=== PATIENT | female | born 1985 | race African-American/Black ===

== ENCOUNTER 2016-07-29 00:10 | Emergency (ER) | payer MEDICAID ==
[2015-12-27 07:43] VITALS: BMI 49.5
[~2016-07-29 00:10] MED LIST: CYCLOBENZAPRINE10 MG PO; HYDROCODONE-APA1 TAB PO
== END 2016-07-29 01:53 | disposition home or self-care (01) ==
LOC: D.ER 00:10
DX: R51 Headache (principal)

== ENCOUNTER → 2016-09-02 10:42 | Outpatient (CLI) | payer MEDICAID ==
[2015-12-27 07:43] VITALS: BMI 49.5
== END | disposition home or self-care (01) ==
LOC: D.MRI 10:00
DX: S83.511D Sprain of anterior cruciate ligament of right knee, subsequent encounter (principal); X58.XXXA Exposure to other specified factors, initial encounter; Y93.89 Activity, other specified; Y92.89 Other specified places as the place of occurrence of the external cause

== ENCOUNTER 2016-09-22 00:13 | Emergency (ER) | payer SELFPAY ==
[2015-12-27 07:43] VITALS: BMI 49.5
== END 2016-09-22 01:12 | disposition home or self-care (01) ==
LOC: D.ER 00:13
DX: S89.91XA Unspecified injury of right lower leg, initial encounter (principal); W18.2XXA Fall in (into) shower or empty bathtub, initial encounter; Y93.89 Activity, other specified; Y92.012 Bathroom of single-family (private) house as the place of occurrence of the external cause

== ENCOUNTER 2016-10-07 01:18 | Emergency (ER) | payer SELFPAY ==
[2015-12-27 07:43] VITALS: BMI 49.5
== END 2016-10-07 02:24 | disposition home or self-care (01) ==
LOC: D.ER 01:18
DX: M54.2 Cervicalgia (principal); M62.838 Other muscle spasm

== ENCOUNTER 2016-11-16 23:22 | Emergency (ER) | payer MEDICAID ==
[2015-12-27 07:43] VITALS: BMI 49.5
== END 2016-11-17 00:32 | disposition home or self-care (01) ==
LOC: D.ER 23:22
DX: S43.401A Unspecified sprain of right shoulder joint, initial encounter (principal); W19.XXXA Unspecified fall, initial encounter; Y93.89 Activity, other specified; Y92.89 Other specified places as the place of occurrence of the external cause; S80.11XA Contusion of right lower leg, initial encounter

== ENCOUNTER 2016-12-28 08:12 | Emergency (ER) | payer MEDICAID ==
[2015-12-27 07:43] VITALS: BMI 49.5
== END 2016-12-28 09:27 | disposition home or self-care (01) ==
LOC: D.ER 08:12
DX: M25.561 Pain in right knee (principal)

== ENCOUNTER 2017-01-30 00:09 | Emergency (ER) | payer MEDICAID ==
[2015-12-27 07:43] VITALS: BMI 49.5
== END 2017-01-30 00:46 | disposition home or self-care (01) ==
LOC: D.ER 00:09
DX: L08.82 Omphalitis not of newborn (principal)

== ENCOUNTER 2017-02-10 22:08 | Emergency (ER) | payer MEDICAID ==
[2015-12-27 07:43] VITALS: BMI 49.5
== END 2017-02-11 00:15 | disposition home or self-care (01) ==
LOC: D.ER 22:08
DX: G43.909 Migraine, unspecified, not intractable, without status migrainosus (principal)

== ENCOUNTER 2017-04-18 00:12 | Emergency (ER) | payer MEDICAID ==
[2015-12-27 07:43] VITALS: BMI 49.5
== END 2017-04-18 00:13 | disposition home or self-care (01) ==
LOC: D.ER 00:12
DX: R11.0 Nausea (principal); Z76.5 Malingerer [conscious simulation]

== ENCOUNTER 2017-06-13 02:58 | Emergency (ER) | payer MEDICAID ==
[2015-12-27 07:43] VITALS: BMI 49.5
== END 2017-06-13 03:47 | disposition home or self-care (01) ==
LOC: D.ER 02:58
DX: S16.1XXA Strain of muscle, fascia and tendon at neck level, initial encounter (principal); W18.2XXA Fall in (into) shower or empty bathtub, initial encounter; Y93.E1 Activity, personal bathing and showering; Y92.012 Bathroom of single-family (private) house as the place of occurrence of the external cause; M25.511 Pain in right shoulder; M25.531 Pain in right wrist; M25.561 Pain in right knee

== ENCOUNTER 2017-07-06 18:43 | Emergency (ER) | payer MEDICAID ==
[2015-12-27 07:43] VITALS: BMI 49.5
[2017-07-06 19:05] LABS: BASOPHILS 0.2 % (0-2); EOSINOPHILS 1.4 % (0-7); HEMOGLOBIN 12.4 g/dL (12-16); IMMATURE GRANULOCYTES 0.4 % (0-5); LYMPHOCYTES 46.8 % (15-50); MCH 26.7 pg (26.0-34.0); MCHC 32.6 g/dL (31.0-37.0); MCV 81.7 fL (80.0-100.0); MEAN PLATELET VOLUME 9.7 fL (7.4-10.4); NEUTROPHILS 43.2 % (40-80); PLATELET COUNT 360 10x3/uL (130-400); RBC 4.65 10x6/uL (4.00-5.40); RDW 12.8 % (11.5-14.5); WBC 8.5 10x3/uL (4.8-10.8)
[2017-07-06 19:32] LABS: ALBUMIN 3.6 g/dL (3.4-5.0); ANION GAP 17.4 mmol/L (8-16); BILIRUBIN - TOTAL 0.2 mg/dL (0.2-1.3); CALCIUM 8.7 mg/dL (8.5-10.1); CREATININE - SERUM 1.1 mg/dL (0.6-1.3); POTASSIUM - SERUM 3.4 mmol/L (3.5-5.1); PROTEIN - SERUM 7.7 g/dL (6.4-8.2)
[2017-07-06 20:59] LABS: T4 THYROXIN - FREE 0.92 ng/dL (0.76-1.46); THYROID STIMULATING HORMONE 1.8 uIU/mL (0.36-3.74)
[2017-07-06 21:14] LABS: HCG SERUM NEGATIVE (NEGATIVE)
[2017-07-06 22:21] LABS: APPEARANCE CLEAR (CLEAR); BILIRUBIN NEGATIVE (NEGATIVE); COLOR YELLOW (YELLOW); GLUCOSE NEGATIVE (NEGATIVE); KETONE NEGATIVE (NEGATIVE); NITRITE NEGATIVE (NEGATIVE); PROTEIN NEGATIVE (NEGATIVE); SPECIFIC GRAVITY 1.015 (1.005-1.020); UROBILINOGEN NORMAL (NORMAL)
[2017-07-06 22:28] LABS: UDS - AMPHET NEGATIVE QUAL (NEGATIVE); UDS - BARB NEGATIVE QUAL (NEGATIVE); UDS - BENZO NEGATIVE QUAL (NEGATIVE); UDS - COCAINE NEGATIVE QUAL (NEGATIVE); UDS - OPIATE NEGATIVE QUAL (NEGATIVE); UDS - PCP NEGATIVE QUAL (NEGATIVE); UDS - THC NEGATIVE QUAL (NEGATIVE)
== END 2017-07-06 23:30 | disposition home or self-care (01) ==
LOC: D.ER 18:43
PROVIDERS: Emergency Medicine; Physician Assistant
DX: R55 Syncope and collapse (principal); R00.0 Tachycardia, unspecified; S02.5XXA Fracture of tooth (traumatic), initial encounter for closed fracture; X58.XXXA Exposure to other specified factors, initial encounter; Y93.89 Activity, other specified; Y92.89 Other specified places as the place of occurrence of the external cause; E87.6 Hypokalemia

== ENCOUNTER 2017-07-08 20:01 | Emergency (ER) | payer MEDICAID ==
[2015-12-27 07:43] VITALS: BMI 49.5
[2017-07-08 20:37] LABS: BASOPHILS 0.2 % (0-2); EOSINOPHILS 1.4 % (0-7); HEMATOCRIT 38.2 % (36.0-48.0); HEMOGLOBIN 12.4 g/dL (12-16); IMMATURE GRANULOCYTES 0.5 % (0-5); LYMPHOCYTES 24.8 % (15-50); MCH 26.7 pg (26.0-34.0); MCHC 32.5 g/dL (31.0-37.0); MCV 82.2 fL (80.0-100.0); MONOCYTES 7.2 % (2-11); NEUTROPHILS 65.9 % (40-80); PLATELET COUNT 340 10x3/uL (130-400); RBC 4.65 10x6/uL (4.00-5.40); WBC 8.1 10x3/uL (4.8-10.8)
[2017-07-08 20:48] LABS: ALBUMIN 3.4 g/dL (3.4-5.0); ALKALINE PHOSPHATASE 88 U/L (46-116); ALT (SGPT) 17 U/L (10-68); BILIRUBIN - TOTAL 0.38 mg/dL (0.2-1.3); CALC OSMOLALITY 271 mosm/kg (275-300); CALCIUM 8.8 mg/dL (8.5-10.1); CARBON DIOXIDE 28.1 mmol/L (21.0-32.0); CHLORIDE - SERUM 102 mmol/L (98-107); CREATININE - SERUM 1.1 mg/dL (0.6-1.3); GLUCOSE 97 mg/dL (74-106); POTASSIUM - SERUM 3.5 mmol/L (3.5-5.1); PROTEIN - SERUM 7.5 g/dL (6.4-8.2); SODIUM 137 mmol/L (136-145); UREA NITROGEN 7 mg/dL (7-18); eGFR NON AFRICAN AMERICAN 62 mL/min (90-120)
[2017-07-08 20:54] LABS: HCG SERUM NEGATIVE (NEGATIVE)
[2017-07-08 21:02] LABS: CKMB 0.6 U/L (0.0-3.6); CREATINE KINASE 110 UL (21-215)
[2017-07-08 21:04] LABS: TROPONIN-I < 0.017 ng/mL (0.000-0.060)
[2017-07-08 22:14] LABS: APPEARANCE HAZY (CLEAR); COLOR YELLOW (YELLOW)
[2017-07-08 22:15] LABS: BILIRUBIN NEGATIVE (NEGATIVE); GLUCOSE NEGATIVE (NEGATIVE); KETONE NEGATIVE (NEGATIVE); NITRITE NEGATIVE (NEGATIVE); PROTEIN TRACE mg/dL (NEGATIVE); SPECIFIC GRAVITY 1.015 (1.005-1.020); UROBILINOGEN NORMAL (NORMAL)
[2017-07-08 22:17] LABS: BACTERIA FEW /hpf (NONE SEEN); EPITHELIAL CELLS 0-5 /hpf (0-5); WHITE CELLS - URINE 0-5 /hpf (0-5)
== END 2017-07-08 22:43 | disposition home or self-care (01) ==
LOC: D.ER 20:01
PROVIDERS: Family Medicine
DX: R07.89 Other chest pain (principal); R55 Syncope and collapse; A59.01 Trichomonal vulvovaginitis; F17.200 Nicotine dependence, unspecified, uncomplicated

== ENCOUNTER 2017-08-30 00:50 | Emergency (ER) | payer MEDICAID ==
[2015-12-27 07:43] VITALS: BMI 49.5
== END 2017-08-30 02:06 | disposition home or self-care (01) ==
LOC: D.ER 00:50
DX: J01.90 Acute sinusitis, unspecified (principal)

== ENCOUNTER 2017-12-03 05:47 | Day surgery (SDC) | payer MEDICAID ==
[~2017-12-03] VITALS: Ht 162.6 cm; Wt 0.7 kg
--- NOTE | ~2017-12-03 | OP ---
PATIENT NAME: CHASTITY VÁZQUEZ MEDICAL RECORD: [id number] :87 LOCATION:[facility] ADMISSION DATE: SURGEON: SHAHAB GAR DO DATE OF OPERATION: 12/03/2017 PROCEDURE PERFORMED: Right knee arthroscopy with partial medial meniscectomy and lateral release. PREOPERATIVE DIAGNOSIS: Right knee patellofemoral syndrome. POSTOPERATIVE DIAGNOSES: Right knee patellofemoral syndrome plus medial meniscal tear. INDICATIONS: Ms. Vázquez is a 32-year-old female, who had her ACL done 7 years ago, started having some knee pain and was complaining of going up and down stairs and having pain on the patella. This was going on for quite some time. She tried injection and also some therapy, which did not help and she wanted something done surgically. I informed her that we could do a lateral release and look at the rest of the knee, check her ACL and make sure it is still good and intact and it should provide her with some relief or give more motion to her patella as it was quite tight with lateral and medial motion. She was okay with that and consented to the procedure, aware of the risks and benefits. SURGEON: SHAHAB GAR DO PROCEDURE IN DETAIL: The patient was given a femoral block by anesthesia in the preoperative area and taken to the operative suite, laid in supine position, given general anesthetic. The right lower extremity was prepped and draped in sterile fashion with tourniquet under the drapes. Timeout was performed. Everyone was in agreement of correct side, site and patient. After that, the lateral portal was established with an 11-blade scalpel and trocar was entered into the knee. Knee was inspected underneath the patella. No chondromalacia was seen except for some slight fraying of the cartilage. The lateral gutter was intact. No loose bodies were seen there, same as the medial gutter. Then, the knee was flexed down. The medial compartment was entered. The medial portal was then established. The meniscus and the medial compartment was probed and the tear was seen in the posterior third of the medial meniscus. This was then trimmed out. The cartilage was inspected on the medial side and seemed to be intact. Then the probe was used to probe the ACL, seemed to be quite taut and in good position, it was parked in the posterior lateral compartment of the knee and the knee was [id number], opening up the lateral compartment. The lateral meniscus was inspected and it was seen to be intact and probed and well attached. The knee was then brought back into an extension and slightly flexed and changed portals, viewing portal to the medial portal, viewing the lateral retinaculum. This was quite taut and was released with a burner. Did encounter a bleeder, which was coagulated and the tourniquet was inflated to 350 mmHg in order to get the bleeding stopped and was deflated after 5 minutes. The lateral release was completed and the patella was seen to be much more mobile and intact, aligned better in the trochlear groove. This was annotated with pictures. After this was done, the tourniquet was let down after 5 minutes and the water was turned off, suction was turned on and excess fluid was taken out of the knee. The portal sites were then closed with 4-0 Monocryl in inverted interrupted fashion. Steri-Strips, Adaptic, 4 x 4's, ABD, Webril and Bautista wrap were then placed on the knee, CHEY hose and stockings were placed up to the knee. The patient was awakened and taken to recovery in stable condition. OPERATIVE REPORT [id number] CHASTITY VÁZQUEZ BLOOD LOSS: Minimal. COMPLICATIONS: None. TRANSINT:[id number] Voice Confirmation ID: [id number] DOCUMENT ID: [id number] SHAHAB GAR DO at 1350 CC: [id number] DICTATION DATE: 12/03/17 0840 BAND TEACHER: 12/03/17 0945 [place] [id number] [place] [id number]
[2017-12-03] MEDS ORDERED: ULTRAM50 MG PO (06:34)
[2017-12-03 06:49] VITALS: BP 153/96; Ht 162.6 cm; Wt 0.7 kg
[2017-12-03 06:51] LABS: HEMATOCRIT 37.4 % (36.0-48.0); HEMOGLOBIN 12.5 g/dL (12-16); MCH 27.1 pg (26.0-34.0); MCHC 33.4 g/dL (31.0-37.0); MCV 81.1 fL (80.0-100.0); MEAN PLATELET VOLUME 10.2 fL (7.4-10.4); RBC 4.61 10x6/uL (4.00-5.40); RDW 12.8 % (11.5-14.5)
[2017-12-03 07:20] LABS: HCG URINE NEGATIVE (NEGATIVE)
[2017-12-03] MEDS ORDERED: PERCOCET 10/3251 TA1 PO (08:33)
[2017-12-03] MEDS ORDERED: TORADOL10 MG PO (08:35)
== END 2017-12-03 10:45 | disposition home or self-care (01) ==
LOC: D.OPS 05:47 → D.PAN 07:45 → D.OPS 08:15
PROVIDERS: Anesthesiology; Orthopaedic Surgery
DX: M22.2X1 Patellofemoral disorders, right knee (principal); S83.241A Other tear of medial meniscus, current injury, right knee, initial encounter; Z01.812 Encounter for preprocedural laboratory examination

== ENCOUNTER 2018-01-08 21:57 | Emergency (ER) | payer MEDICAID ==
[~2018-01-08] VITALS: Ht 157.5 cm; Wt 113.6 kg
[~2018-01-08 21:57] MED LIST changes: +PERCOCET 10/3251 TA1 PO; +TORADOL10 MG PO; +ULTRAM50 MG PO
[2018-01-08 22:04] VITALS: Ht 157.5 cm; Wt 113.6 kg
[2018-01-09] MEDS ORDERED: AMOXICILLIN500 M1 PO (00:20)
[2018-01-09] MEDS ORDERED: TYLENOL W/CODEI1 TAB PO (00:20)
[2018-01-09 00:37] VITALS: BP 138/74
== END 2018-01-09 00:38 | disposition home or self-care (01) ==
LOC: D.ER 21:57
DX: K04.7 Periapical abscess without sinus (principal); K08.89 Other specified disorders of teeth and supporting structures

== ENCOUNTER 2018-03-13 23:38 | Emergency (ER) | payer MEDICAID ==
[~2018-03-13] VITALS: Ht 157.5 cm; Wt 100.0 kg
[~2018-03-13 23:38] MED LIST changes: +AMOXICILLIN500 M1 PO; +TYLENOL W/CODEI1 TAB PO
[2018-03-13 23:48] VITALS: Ht 157.5 cm; Wt 100.0 kg
[2018-03-14] MEDS ORDERED: TORADOL10 MG PO (01:01)
[2018-03-14 01:56] VITALS: BP 136/79
== END 2018-03-14 01:56 | disposition home or self-care (01) ==
LOC: D.ER 23:38
DX: M25.551 Pain in right hip (principal)

== ENCOUNTER → 2018-04-14 07:59 | Outpatient (CLI) | payer MEDICAID ==
[2018-03-13 23:48] VITALS: BMI 40.3
== END | disposition home or self-care (01) ==
LOC: D.MRI 07:59
DX: M54.16 Radiculopathy, lumbar region (principal)

== ENCOUNTER 2018-06-12 20:29 | Observation (INO) | payer MEDICAID ==
[~2018-06-12] VITALS: Ht 157.5 cm; Wt 104.5 kg
[2018-06-12] MEDS ORDERED: ULTRAM50 MG (20:34)
[2018-06-12 20:54] LABS: BASOPHILS 0.3 % (0-2); EOSINOPHILS 0.8 % (0-7); HEMATOCRIT 38.1 % (36.0-48.0); HEMOGLOBIN 12.5 g/dL (12-16); IMMATURE GRANULOCYTES 0.3 % (0-5); LYMPHOCYTES 39.3 % (15-50); MCH 26.6 pg (26.0-34.0); MCHC 32.8 g/dL (31.0-37.0); MCV 81.1 fL (80.0-100.0); MEAN PLATELET VOLUME 9.9 fL (7.4-10.4); MONOCYTES 5.5 % (2-11); NEUTROPHILS 53.8 % (40-80); PLATELET COUNT 388 10x3/uL (130-400); RDW 12.7 % (11.5-14.5); WBC 8.8 10x3/uL (4.8-10.8)
--- NOTE | 2018-06-12 21:00 | NUR ---
PT REPORTS CHEST PAIN. ADVISED EDP. EKG OBTAINED.
[2018-06-12 21:03] LABS: ALBUMIN 3.3 g/dL (3.4-5.0); BILIRUBIN - TOTAL 0.34 mg/dL (0.2-1.3); CALCIUM 8.2 mg/dL (8.5-10.1); CARBON DIOXIDE 24.1 mmol/L (21.0-32.0); CREATININE - SERUM 1.1 mg/dL (0.6-1.3); POTASSIUM - SERUM 3.1 mmol/L (3.5-5.1); PROTEIN - SERUM 7.6 g/dL (6.4-8.2)
--- NOTE | 2018-06-12 21:50 | NUR ---
MINA GIL AND MINA MCKEON IN PATIENT ROOM AT THIS TIME.
[2018-06-12 21:59] VITALS: BP 156/96
[2018-06-12 22:11] LABS: C-REACTIVE PROTEIN 1.9 mg/dL (0.0-0.9); THYROID STIMULATING HORMONE 1.41 uIU/mL (0.36-3.74)
[2018-06-12 22:12] LABS: APTT 26.8 SECONDS (22.8-39.4)
[2018-06-12 22:13] LABS: D-DIMER-QUANTITATIVE 0.91 ug/mLFEU (0.20-0.54); INR 1.04 (0.85-1.17); PROTIME 13.1 SECONDS (11.6-15.0)
[2018-06-12 22:15] LABS: TROPONIN-I < 0.017 ng/mL (0.000-0.060)
--- NOTE | 2018-06-12 22:24 | NUR ---
PT TRANSPORTED TO MRI VIA WHEELCHAIR BY RAD STAFF.
[2018-06-12 22:37] LABS: APPEARANCE CLOUDY (CLEAR); BILIRUBIN NEGATIVE (NEGATIVE); COLOR YELLOW (YELLOW); GLUCOSE NEGATIVE (NEGATIVE); KETONE NEGATIVE (NEGATIVE); NITRITE NEGATIVE (NEGATIVE); PROTEIN TRACE mg/dL (NEGATIVE); SPECIFIC GRAVITY 1.025 (1.005-1.020); UROBILINOGEN NORMAL (NORMAL)
[2018-06-12 22:39] LABS: BACTERIA MODERATE /hpf (NONE SEEN); HCG URINE NEGATIVE (NEGATIVE); RED CELLS - URINE 0-5 /hpf (0-5); WHITE CELLS - URINE 0-5 /hpf (0-5)
[2018-06-12 23:25] LABS: UDS - AMPHET NEGATIVE QUAL (NEGATIVE); UDS - BARB NEGATIVE QUAL (NEGATIVE); UDS - BENZO NEGATIVE QUAL (NEGATIVE); UDS - COCAINE NEGATIVE QUAL (NEGATIVE); UDS - OPIATE NEGATIVE QUAL (NEGATIVE); UDS - PCP NEGATIVE QUAL (NEGATIVE); UDS - THC NEGATIVE QUAL (NEGATIVE)
--- NOTE | 2018-06-12 23:26 | NUR ---
PT RETURNED FROM MRI AT THIS TIME.
[2018-06-12 23:36] VITALS: BP 148/83
--- NOTE | 2018-06-12 23:41 | NUR ---
PT LAYING IN BED VISITING WITH FAMILY MEMBERS AT THIS TIME. RESPIRATIONS ARE EVEN AND UNLABORED. VSS. NO DISTRESS NOTED. COLOR WNL FOR RACE. WILL CONTINUE TO MONITOR.
--- NOTE | 2018-06-13 01:34 | NUR ---
REC'D PATIENT TO FLOOR VIA WHEELCHAIR. NO S/S OF DISTRESS. OBTAINED CONSENT TO ASK QUESTIONS IN FRONT OF GUEST. COMPLETED HISTORY AND ASSESSMENT. PATIENT DENIES OTHER NEEDS AT THIS TIME. BED RAILS PADDED FOR SEIZURE PRECAUTIONS. BED IN LOWEST POSITION AND CALL LIGHT WITHIN REACH. ENCOURAGED THE PATIENT TO CALL IF SHE HAS NEEDS. WILL CONTINUE TO MONITOR.
[2018-06-13 01:42] VITALS: BP 146/87; Ht 157.5 cm; Wt 104.5 kg
[2018-06-13 08:38] VITALS: BP 122/68
[2018-06-13 12:30] VITALS: BP 125/60
[2018-06-13 17:03] VITALS: BP 104/48
[2018-06-13 17:18] LABS: BASOPHILS 0.2 % (0-2); EOSINOPHILS 0.8 % (0-7); HEMOGLOBIN 11.6 g/dL (12-16); IMMATURE GRANULOCYTES 0.2 % (0-5); LYMPHOCYTES 28.8 % (15-50); MCH 26.2 pg (26.0-34.0); MCHC 32.2 g/dL (31.0-37.0); MCV 81.4 fL (80.0-100.0); MEAN PLATELET VOLUME 9.6 fL (7.4-10.4); MONOCYTES 4.7 % (2-11); NEUTROPHILS 65.3 % (40-80); PLATELET COUNT 326 10x3/uL (130-400); RBC 4.42 10x6/uL (4.00-5.40)
[2018-06-13 17:23] LABS: WBC 6.4 10x3/uL (4.8-10.8)
[2018-06-13 17:32] LABS: ALKALINE PHOSPHATASE 85 U/L (46-116); ALT (SGPT) 20 U/L (10-68); BILIRUBIN - TOTAL 0.63 mg/dL (0.2-1.3); CALC OSMOLALITY 276 mosm/kg (275-300); CALCIUM 8.1 mg/dL (8.5-10.1); CARBON DIOXIDE 26.6 mmol/L (21.0-32.0); CHLORIDE - SERUM 103 mmol/L (98-107); CREATININE - SERUM 0.9 mg/dL (0.6-1.3); GLUCOSE 105 mg/dL (74-106); POTASSIUM - SERUM 3.3 mmol/L (3.5-5.1); SODIUM 139 mmol/L (136-145); UREA NITROGEN 11 mg/dL (7-18); eGFR NON AFRICAN AMERICAN 78 mL/min (90-120)
[2018-06-13 17:44] LABS: CKMB 0.5 U/L (0.0-3.6); CREATINE KINASE 166 UL (21-215); TROPONIN-I < 0.017 ng/mL (0.000-0.060)
--- NOTE | 2018-06-13 20:45 | NUR ---
SITTING UP IN BED WATCHING TV AND TALKING TO SIG OTHER. ALERT AND ORIENTED X4. NO SEIZURE ACTIVITY NOTED. SEIZURE PRECAUTIONS IN USE. RESP EVEN AND NONLABORED. BBS CTA. ABD OBESE. TELEMETRY SHOWS SR WITH RATE OF 93. NO EDEMA NOTED. AMBULATORY. NO DISTRESS. NS @ 50 ML/HR INFUSING IN LT AC WITHOUT DIFF. SR ELEVATED X2. CL IN REACH.
[2018-06-13 22:01] VITALS: BP 139/86
[2018-06-13 23:51] LABS: CKMB 0.1 U/L (0.0-3.6); CREATINE KINASE 168 UL (21-215)
[2018-06-13 23:52] LABS: TROPONIN-I < 0.017 ng/mL (0.000-0.060)
[2018-06-14] VITALS: BP 125/80
--- NOTE | 2018-06-14 03:26 | NUR ---
RESTING QUIETLY WITH EYES CLOSED. RESP EVEN AND NONLABORED. NO DISTRESS. NO SEIZURE ACTIVITY SO FAR THIS SHIFT. SIG OTHER IN BED WITH PT. CL IN REACH.
[2018-06-14 05:59] VITALS: BP 132/73
--- NOTE | 2018-06-14 07:00 | NUR ---
RECEIVED REPORT. ASSUMED CARE OF PATIENT. NO DISTRESS. SITTING IN BED. IV FLUIDS INFUSING ORDERED.
[2018-06-14 07:07] LABS: BASOPHILS 0.2 % (0-2); EOSINOPHILS 1.1 % (0-7); HEMATOCRIT 35.5 % (36.0-48.0); HEMOGLOBIN 11.4 g/dL (12-16); IMMATURE GRANULOCYTES 0.2 % (0-5); LYMPHOCYTES 28.8 % (15-50); MCH 26.2 pg (26.0-34.0); MCHC 32.1 g/dL (31.0-37.0); MCV 81.6 fL (80.0-100.0); MONOCYTES 4.8 % (2-11); NEUTROPHILS 64.9 % (40-80); PLATELET COUNT 333 10x3/uL (130-400); RBC 4.35 10x6/uL (4.00-5.40); RDW 12.9 % (11.5-14.5); WBC 5.6 10x3/uL (4.8-10.8)
[2018-06-14 07:34] LABS: ALBUMIN 2.8 g/dL (3.4-5.0); ALKALINE PHOSPHATASE 79 U/L (46-116); ALT (SGPT) 18 U/L (10-68); BILIRUBIN - TOTAL 0.39 mg/dL (0.2-1.3); CALC OSMOLALITY 275 mosm/kg (275-300); CALCIUM 7.8 mg/dL (8.5-10.1); CARBON DIOXIDE 26.1 mmol/L (21.0-32.0); CHLORIDE - SERUM 104 mmol/L (98-107); CKMB 0.1 U/L (0.0-3.6); CREATINE KINASE 134 UL (21-215); CREATININE - SERUM 0.7 mg/dL (0.6-1.3); GLUCOSE 90 mg/dL (74-106); POTASSIUM - SERUM 3.6 mmol/L (3.5-5.1); PROTEIN - SERUM 6.7 g/dL (6.4-8.2); SODIUM 138 mmol/L (136-145); TROPONIN-I < 0.017 ng/mL (0.000-0.060); UREA NITROGEN 12 mg/dL (7-18); eGFR NON AFRICAN AMERICAN > 90 mL/min (90-120)
--- NOTE | 2018-06-14 09:14 | NUR ---
RATIONALE FOR SCD'S EXPLAINED. REFUSED SCD'S
--- NOTE | 2018-06-14 09:15 | NUR ---
IV FLUSED. NO DISTRESS.
[2018-06-14 09:43] VITALS: BP 140/84
[2018-06-14 11:45] VITALS: BP 141/93
--- NOTE | 2018-06-14 15:15 | NUR ---
PATIENT AMBULATING IN HALLWAY. NO DISTRESS. RESP EVEN AND UNLABORED. NO JERKS, TICS, OR SEIZURE LIKE ACTIVITY NOTED.
--- NOTE | 2018-06-14 19:30 | NUR ---
PT ALERT AND ORIENTED. CONCERNED OF BLOOD IN IV LINE. IV FLUSHED CLAMPED AND NEW SWAB CAP PLACED. CALL LIGHT IN REACH. WILL CONTINUE TO OBSERVE.
[2018-06-14 19:54] VITALS: BP 159/763
--- NOTE | 2018-06-15 01:54 | NUR ---
PATIENT RESTING IN BED WITH EYES CLOSED AND NO S/S OF DISTRESS. BED IN LOWEST POSITION AND CALL LIGHT WITHIN REACH. WILL CONTINUE TO MONITOR.
[2018-06-15 05:12] VITALS: BP 151/96
[2018-06-15 06:57] LABS: BASOPHILS 0.1 % (0-2); EOSINOPHILS 1.2 % (0-7); HEMATOCRIT 34.7 % (36.0-48.0); HEMOGLOBIN 11.3 g/dL (12-16); IMMATURE GRANULOCYTES 0.3 % (0-5); LYMPHOCYTES 30.9 % (15-50); MCH 26.6 pg (26.0-34.0); MCHC 32.6 g/dL (31.0-37.0); MCV 81.6 fL (80.0-100.0); MEAN PLATELET VOLUME 10.4 fL (7.4-10.4); MONOCYTES 6.1 % (2-11); NEUTROPHILS 61.4 % (40-80); PLATELET COUNT 336 10x3/uL (130-400); RBC 4.25 10x6/uL (4.00-5.40); WBC 6.9 10x3/uL (4.8-10.8)
[2018-06-15 07:16] LABS: ALBUMIN 2.8 g/dL (3.4-5.0); ALKALINE PHOSPHATASE 85 U/L (46-116); ALT (SGPT) 17 U/L (10-68); CALC OSMOLALITY 283 mosm/kg (275-300); CARBON DIOXIDE 24.6 mmol/L (21.0-32.0); CHLORIDE - SERUM 107 mmol/L (98-107); CREATININE - SERUM 0.8 mg/dL (0.6-1.3); GLUCOSE 98 mg/dL (74-106); POTASSIUM - SERUM 3.6 mmol/L (3.5-5.1); PROTEIN - SERUM 6.5 g/dL (6.4-8.2); SODIUM 142 mmol/L (136-145); UREA NITROGEN 14 mg/dL (7-18); eGFR NON AFRICAN AMERICAN 89 mL/min (90-120)
[2018-06-15 08:27] VITALS: BP 154/93
--- NOTE | 2018-06-15 10:27 | NUR ---
PROVIDED VERBAL AND WRITTEN DISCHARGE TEACHING TO PT, WHO VERBALIZED UNDERSTANDING. D/C LT AC IV WITH CATHETER TIP INTACT.PT LEFT UNIT VIA AMBULATORY WITH ALL BELONGINGS ACCOMPANIED BY FAMILY, NAD NOTED.
== END 2018-06-15 11:00 | disposition home or self-care (01) ==
LOC: D.ER 20:29 → D.EDHOLD 06-13 00:55 → D.M3 06-13 00:55 → OBSVTIME 06-13 00:55 → D.M3 06-13 01:13
PROVIDERS: Family Medicine; ADMIT Internal Medicine Nephrology
DX: R56.9 Unspecified convulsions (principal); R00.0 Tachycardia, unspecified; R93.0 Abnormal findings on diagnostic imaging of skull and head, not elsewhere classified; K21.9 Gastro-esophageal reflux disease without esophagitis; N39.0 Urinary tract infection, site not specified; E87.6 Hypokalemia; R55 Syncope and collapse

== ENCOUNTER 2018-11-08 02:10 | Emergency (ER) | payer MEDICAID ==
[~2018-11-08] VITALS: Ht 157.5 cm; Wt 118.2 kg
[~2018-11-08 02:10] MED LIST changes: +ULTRAM50 MG
[2018-11-08 02:28] VITALS: BP 131/83; Ht 157.5 cm; Wt 118.2 kg
== END 2018-11-08 03:30 | disposition left against medical advice (07) ==
LOC: D.ER 02:10
DX: M54.5 Low back pain (principal); W18.2XXA Fall in (into) shower or empty bathtub, initial encounter; Y93.E1 Activity, personal bathing and showering; Y92.012 Bathroom of single-family (private) house as the place of occurrence of the external cause

== ENCOUNTER 2019-02-16 16:51 | Emergency (ER) | payer MEDICAID ==
[~2019-02-16] VITALS: Ht 157.5 cm; Wt 118.2 kg
[2019-02-16 16:52] VITALS: BP 137/76; Ht 157.5 cm; Wt 118.2 kg
[2019-02-16] MEDS ORDERED: TORADOL10 MG PO (18:19)
[2019-02-16] MEDS ORDERED: ROBAXIN500 MG PO (18:19)
== END 2019-02-16 18:34 | disposition home or self-care (01) ==
LOC: D.ER 16:51
DX: S70.11XA Contusion of right thigh, initial encounter (principal); W23.0XXA Caught, crushed, jammed, or pinched between moving objects, initial encounter

== ENCOUNTER 2019-04-21 17:06 | Emergency (ER) | payer MEDICAID ==
[~2019-04-21] VITALS: Ht 157.5 cm; Wt 118.2 kg
[~2019-04-21 17:06] MED LIST changes: +ROBAXIN500 MG PO
[2019-04-21 17:22] VITALS: Ht 157.5 cm; Wt 118.2 kg
[2019-04-21 19:58] LABS: BASOPHILS 0.1 % (0-2); EOSINOPHILS 0.4 % (0-7); HEMATOCRIT 37.2 % (36.0-48.0); HEMOGLOBIN 11.8 g/dL (12-16); IMMATURE GRANULOCYTES 0.3 % (0-5); MCH 25.8 pg (26.0-34.0); MCHC 31.7 g/dL (31.0-37.0); MCV 81.2 fL (80.0-100.0); MEAN PLATELET VOLUME 9.4 fL (7.4-10.4); MONOCYTES 5.1 % (2-11); NEUTROPHILS 80.1 % (40-80); RBC 4.58 10x6/uL (4.00-5.40); RDW 12.9 % (11.5-14.5); WBC 10.5 10x3/uL (4.8-10.8)
[2019-04-21 20:05] LABS: PLATELET COUNT 423 10x3/uL (130-400)
[2019-04-21 20:10] LABS: CALC OSMOLALITY 274 mosm/kg (275-300); CARBON DIOXIDE 29.5 mmol/L (21.0-32.0); CHLORIDE - SERUM 103 mmol/L (98-107); CREATININE - SERUM 0.7 mg/dL (0.6-1.3); GLUCOSE 87 mg/dL (74-106); POTASSIUM - SERUM 3.5 mmol/L (3.5-5.1); SODIUM 139 mmol/L (136-145); UREA NITROGEN 8 mg/dL (7-18); eGFR NON AFRICAN AMERICAN > 90 mL/min (90-120)
[2019-04-21 20:15] LABS: ALBUMIN 3.3 g/dL (3.4-5.0); ALKALINE PHOSPHATASE 101 U/L (46-116); ALT (SGPT) 16 U/L (10-68); BILIRUBIN - TOTAL 0.43 mg/dL (0.2-1.3); C-REACTIVE PROTEIN 9.2 mg/dL (0.0-0.9); PROTEIN - SERUM 7.5 g/dL (6.4-8.2)
[2019-04-21] MEDS ORDERED: MEDROL DOSE PACK4 MG PO (22:24)
[2019-04-21] MEDS ORDERED: CLEOCIN HCL300 MG PO (22:24)
[2019-04-21 23:31] VITALS: BP 122/79
== END 2019-04-21 23:32 | disposition home or self-care (01) ==
LOC: D.ER 17:06
PROVIDERS: Emergency Medicine
DX: J39.0 Retropharyngeal and parapharyngeal abscess (principal); J03.90 Acute tonsillitis, unspecified

== ENCOUNTER 2019-04-23 13:13 | Emergency (ER) | payer MEDICAID ==
[~2019-04-23] VITALS: Ht 157.5 cm; Wt 118.2 kg
[~2019-04-23 13:13] MED LIST changes: +CLEOCIN HCL300 MG PO; +MEDROL DOSE PACK4 MG PO
[2019-04-23 13:20] VITALS: Ht 157.5 cm; Wt 118.2 kg
[2019-04-23 13:55] LABS: BASOPHILS 0 % (0-2); EOSINOPHILS 0 % (0-7); HEMATOCRIT 36.6 % (36.0-48.0); HEMOGLOBIN 11.5 g/dL (12-16); IMMATURE GRANULOCYTES 0.3 % (0-5); LYMPHOCYTES 9.9 % (15-50); MCH 25.7 pg (26.0-34.0); MCHC 31.4 g/dL (31.0-37.0); MCV 81.7 fL (80.0-100.0); MEAN PLATELET VOLUME 9.5 fL (7.4-10.4); MONOCYTES 4.8 % (2-11); PLATELET COUNT 485 10x3/uL (130-400); RBC 4.48 10x6/uL (4.00-5.40); WBC 15.1 10x3/uL (4.8-10.8)
[2019-04-23 13:59] LABS: CALC OSMOLALITY 282 mosm/kg (275-300); CALCIUM 9.2 mg/dL (8.5-10.1); CARBON DIOXIDE 28.6 mmol/L (21.0-32.0); CHLORIDE - SERUM 106 mmol/L (98-107); CREATININE - SERUM 0.8 mg/dL (0.6-1.3); GLUCOSE 102 mg/dL (74-106); POTASSIUM - SERUM 3.6 mmol/L (3.5-5.1); SODIUM 142 mmol/L (136-145); eGFR NON AFRICAN AMERICAN 89 mL/min (90-120)
[2019-04-23 14:01] LABS: UREA NITROGEN 13 mg/dL (7-18)
[2019-04-23 14:03] LABS: ALKALINE PHOSPHATASE 87 U/L (46-116); ALT (SGPT) 17 U/L (10-68); BILIRUBIN - TOTAL 0.24 mg/dL (0.2-1.3); C-REACTIVE PROTEIN 4.4 mg/dL (0.0-0.9); PROTEIN - SERUM 7.7 g/dL (6.4-8.2)
[2019-04-23] MEDS ORDERED: ZOFRAN4 MG PO (16:02)
[2019-04-23] MEDS ORDERED: HYDROCODON-ACE1 EAC7 PO (16:02)
[2019-04-23 16:35] VITALS: BP 138/76
== END 2019-04-23 16:36 | disposition home or self-care (01) ==
LOC: D.ER 13:13
PROVIDERS: Family Medicine
DX: R60.9 Edema, unspecified (principal); J39.1 Other abscess of pharynx

== ENCOUNTER 2019-08-21 16:31 | Emergency (ER) | payer MEDICAID ==
[~2019-08-21] VITALS: Ht 157.5 cm; Wt 118.2 kg
[~2019-08-21 16:31] MED LIST changes: +HYDROCODON-ACE1 EAC7 PO; +ZOFRAN4 MG PO
[2019-08-21 16:44] VITALS: BP 128/68; Ht 157.5 cm; Wt 118.2 kg
[2019-08-21] MEDS ORDERED: TORADOL10 MG PO (18:44)
== END 2019-08-21 18:54 | disposition home or self-care (01) ==
LOC: D.ER 16:31
DX: S93.402A Sprain of unspecified ligament of left ankle, initial encounter (principal); M77.32 Calcaneal spur, left foot; W19.XXXA Unspecified fall, initial encounter; Y93.9 Activity, unspecified; Y92.9 Unspecified place or not applicable

== ENCOUNTER 2020-09-23 11:06 | Emergency (ER) | payer MEDICAID ==
[~2020-09-23] VITALS: Ht 157.5 cm; Wt 122.7 kg
[~2020-09-23 11:06] MED LIST changes: +METHOCARBAMOL500 MG PO
[2020-09-23 11:18] VITALS: BP 172/101; Ht 157.5 cm; Wt 122.7 kg
[2020-09-23] MEDS ORDERED: VOLTAREN100 GM TOPICAL (11:36)
[2020-09-23] MEDS ORDERED: DICLOFENAC SODI50 MG PO (11:36)
== END 2020-09-23 11:47 | disposition home or self-care (01) ==
LOC: D.ER 11:06
DX: M77.12 Lateral epicondylitis, left elbow (principal)